=== PATIENT | female | born 1970 | race Caucasian/White ===

== ENCOUNTER 2022-03-30 19:41 | Emergency (ER) | payer OTHER ==
[2022-03-30] MEDS ORDERED: EPINEPHrine 1 MG/ML VIAL ONE (19:49)
[2022-03-30] MEDS ORDERED: diphenhydrAMINE 50 MG/ML VIAL ONE (19:49)
[2022-03-30] MEDS ORDERED: Dexamethasone 10 MG/ML VIAL ONE (19:49)
== END 2022-03-30 23:13 | disposition home or self-care (01) ==
LOC: ERS 19:41
DX: L50.0 Allergic urticaria (principal); E11.9 Type 2 diabetes mellitus without complications; K21.9 Gastro-esophageal reflux disease without esophagitis; I10 Essential (primary) hypertension; Z79.84 Long term (current) use of oral hypoglycemic drugs; Z79.899 Other long term (current) drug therapy
CPT/HCPCS: 96372; 96374; 96375; J0171; J1100; J1200

== ENCOUNTER 2023-02-13 11:26 | Outpatient (CLI) | payer OTHER | END 2023-02-13 11:27 | disposition home or self-care (01) | LOC: BICRAD 11:26 | PROVIDERS: ATTEND Nurse Practitioner Family | DX: M25.522 Pain in left elbow (principal) ==